=== PATIENT | female | born 1940 | race Caucasian/White ===

== ENCOUNTER → 2017-01-14 | Outpatient (CLI) | payer MEDICARE ==
[2017-01-14 14:57] LABS: Anion Gap 9 mmol/L; Blood Urea Nitrogen 16 mg/dL (7-17); Calcium 9.4 mg/dL (8.4-10.2); Carbon Dioxide 28 mmol/L (22-30); Chloride 102 mmol/L (98-107); Glucose 89 mg/dL (74-99); Non-African American GFR(MDRD) 54 (>60 ml/min/1.73 sqM); Potassium 4.5 mmol/L (3.5-5.1); Sodium 139 mmol/L (137-145)
== END | disposition home or self-care (01) ==
LOC: LABWHC1 14:13
PROVIDERS: ATTEND Family Medicine
DX: R41.82 Altered mental status, unspecified (principal)
CPT/HCPCS: 36415; 80048

== ENCOUNTER → 2017-02-01 | Outpatient (CLI) | payer MEDICARE ==
[2017-02-01 11:53] LABS: Blood Urea Nitrogen 19 mg/dL (7-17); Non-African American GFR(MDRD) 54 (>60 ml/min/1.73 sqM)
--- NOTE | 2017-02-01 13:05 | CT ---
EXAMINATION TYPE: CT brain w con DATE OF EXAM: 02/01/2017 COMPARISON: NONE HISTORY: Altered Mental Status, Lung nodules CT DLP: 1144.70 mGycm Automated exposure control for dose reduction was used. CONTRAST: CT scan of the head is performed with IV Contrast, patient injected with 80 mL of Visipaque 320. FINDINGS: There is no abnormal enhancing mass or midline shift identified. The ventricles and sulci are within normal limits in size for patient's age. The globes are intact and the visualized sinuses are clear . Persistent anterior metopic suture is incidentally noted. Patchy soft tissue density right external auditory canal is felt to reflect cerumen. IMPRESSION: No suspicious enhancing mass or midline shift is seen.
--- NOTE | 2017-02-01 13:10 | CT ---
EXAMINATION TYPE: CT chest wo con DATE OF EXAM: 02/01/2017 COMPARISON: CT chest March 19, 2016 and older exam August 05, 2015 HISTORY: Altered Mental Status, Lung nodules CT DLP: 155.60 mGycm. Automated Exposure Control for Dose Reduction was Utilized. TECHNIQUE: CT scan of the thorax is performed without IV contrast. FINDINGS: LUNGS: There is background mild emphysematous change. There is mild apical pleural and parenchymal fi brosis redemonstrated. There is persistent linear scarring medially in the left lung base. There is d ependent atelectasis in both lower lobes. There is additional linear scarring in both bases just abov e diaphragm redemonstrated. There is stable 3 mm nodule left lower lobe on axial image 39 posteriorly . There is stable 6 x 4 mm groundglass nodule right midlung anteriorly on axial image 33. There is st able 4 mm groundglass nodule right lower lobe posterior lateral region on axial image 38. No new susp icious greater than 6 mm nodule or mass is clearly seen bilaterally. No pleural effusion or pneumotho rax is present. Tracheobronchial tree is patent. MEDIASTINUM: Lack of IV contrast is noted to limit evaluation for mediastinal and especially hilar ad enopathy. There are no definitive greater than 1 cm hilar or mediastinal lymph nodes. No cardiomega ly or pericardial effusion is seen. OTHER: Mild to moderate multilevel spurring in thoracic spine is redemonstrated. Some disc space narr owing is redemonstrated in lower thoracic levels. IMPRESSION: Scattered stable small bilateral nodularity since July 2015. No new suspicious nodules o r adenopathy is identified.
== END | disposition home or self-care (01) ==
LOC: RADCTMAIN 11:10
PROVIDERS: ATTEND Family Medicine
DX: R91.8 Other nonspecific abnormal finding of lung field (principal); R41.82 Altered mental status, unspecified
CPT/HCPCS: 82565; 84520; 70460; 71250; Q9967

== ENCOUNTER → 2018-09-16 | Outpatient (CLI) | payer MEDICARE | END | disposition home or self-care (01) | LOC: LABWHC1 14:05 | PROVIDERS: ATTEND Family Medicine | DX: E87.5 Hyperkalemia (principal) | CPT/HCPCS: 36415; 84132 ==

== ENCOUNTER 2019-03-18 13:10 | Inpatient (IN) | payer MEDICARE ==
[2019-03-18] MEDS ORDERED: levETIRAcetam IV 1,000 MG in SALINE 1 100ML.BAG IVPB STA (15:01)
[2019-03-18] MEDS ORDERED: PROMETHAZINE 25 MG TAB PO PRN (15:01)
--- NOTE | 2019-03-18 15:07 | ED ---
General Adult HPI - General Chief complaint: Altered Mental Status Stated complaint: Altered Mental Status Time Seen by Provider: 03/18/19 13:20 Source: EMS Mode of arrival: EMS Limitations: altered mental status - History of Present Illness Initial comments: The patient is a 79-year-old female with past history of accelerated dementia who presents to the emergency room as a transfer from [facility]. History is provided by the patient's , son-in-law and daughter. It was originally stated at the other facility that the patient had 2 weeks of expressive aphasia. When discussing this with family, they state she has chronic dementia and will occasionally have issues with her speech. This is not what brought them into the hospital. They called EMS because she had what looked like new onset seizure activity home. Report her eyes rolled back in her head and she went completely unresponsive. She had full tonic-clonic shaking. She also had an episode of urinary and bowel incontinence. Episode lasted approximately 1 minute before the patient went limp. She then slowly became more alert. Patient's dementia waxes and wanes. States that it is not infrequent for the patient did not know who she is or where she is at. She will occasionally have urinary and stool incontinence as well. No history of seizures. No recent known blunt head trauma. Denies a cardiac history. Patient is on Xanax for anxiety. Deny any missed doses. No recent medication changes. No lateralizing symptoms. He denies any pain. The remainder of the HPI is limited because the patient's advanced dementia. - Related Data Home Medications Medication Instructions Recorded Confirmed Furosemide [Lasix] 20 mg PO DAILY 06/09/15 03/18/19 Lisinopril [Prinivil] 10 mg PO QAM 06/09/15 03/18/19 Memantine [Namenda] 10 mg PO BID 06/09/15 03/18/19 Pantoprazole Sodium 40 mg PO DAILY 06/09/15 03/18/19 Dicyclomine [Bentyl] 20 mg PO TID 10/29/15 03/18/19 Lisinopril [Zestril] 20 mg PO HS 03/18/19 03/18/19 OLANZapine [ZyPREXA] 5 mg PO HS 03/18/19 03/18/19 Promethazine [Phenergan] 25 mg PO Q6HR PRN 03/18/19 03/18/19 busPIRone HCL [Buspar] 7.5 mg PO BID 03/18/19 03/18/19 Previous Rx's Medication Instructions Recorded Budesonide [Entocort EC] 3 mg PO TID 10 Days #30 capdr...er 03/21/19 ALPRAZolam [Xanax] 0.25 mg PO HS #2 tab 03/23/19 ALPRAZolam [Xanax] 0.5 mg PO BID #4 tab 03/23/19 Folic Acid 1 mg PO DAILY@1200 tab 03/23/19 Multivitamins, Thera [Multivitamin 1 each PO DAILY@1200 tab 03/23/19 (formulary)] Sertraline [Zoloft] 25 mg PO DAILY tab 03/23/19 Sertraline [Zoloft] 50 mg PO DAILY tab 03/23/19 Thiamine [Vitamin B-1] 100 mg PO DAILY@1200 tab 03/23/19 levETIRAcetam [Keppra] 750 mg PO Q12HR tab 03/23/19 Allergies Allergy/AdvReac Type Severity Reaction Status Date / Time aspirin Allergy Unknown Verified 03/18/19 14:14 Review of Systems ROS Statement: Those systems with pertinent positive or pertinent negative responses have been documented in the HPI. ROS Other: All systems not noted in ROS Statement are negative. 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", lumps in breasts, History of Any Multi-Drug Resistant Organisms: None Reported Past Surgical History: Unable to Obtain Additional Past Surgical History / Comment(s): daughter not sure of surgical hx Past Anesthesia/Blood Transfusion Reactions: No Reported Reaction Past Psychological History: Anxiety, Depression Smoking Status: Never smoker Past Alcohol Use History: None Reported Past Drug Use History: None Reported - Past Family History Mother Family Medical History: Cancer Son(s) Family Medical History: Deep Vein Thrombosis (DVT), Pulmonary Embolus General Exam Limitations: altered mental status General appearance: anxious Head exam: Present: atraumatic, normocephalic Eye exam: Present: PERRL, EOMI ENT exam: Present: normal exam, normal oropharynx Neck exam: Present: normal inspection. Absent: tenderness, meningismus Respiratory exam: Present: normal lung sounds bilaterally. Absent: respiratory distress, wheezes, rales Cardiovascular Exam: Present: regular rate, normal rhythm GI/Abdominal exam: Present: soft. Absent: distended, tenderness, guarding, rebound, rigid Extremities exam: Present: pedal edema Back exam: Present: normal inspection Neurological exam: Present: alert. Absent: oriented X3 Psychiatric exam: Present: anxious Skin exam: Present: warm, dry, intact Course Vital Signs 03/18/19 03/18/19 03/18/19 13:19 15:11 15:32 Temperature 98.2 F Pulse Rate 92 76 Respiratory 18 16 Rate Blood Pressure 140/112 109/67 150/87 O2 Sat by Pulse 98 99 Oximetry Medical Decision Making - Medical Decision Making Upon arrival the patient is placed in room 3. I discussed the history with the patient's family. I reviewed the transfer packet which included an EKG, basic blood work and a UA. The patient did have a CT of her brain performed which demonstrates no acute findings. CT with images was uploaded in the computer [employer]. I discuss the diagnosis, differential and treatment options. I did dose the patient's home medications. I ordered a gram of Keppra. I discussed the case with Dr. Styles who accepted admission of the patient as long as family is aware that neurology is not condenser operator until Wednesday. We will be unable to obtain specialist opinion and if there is a neurologic emergency, the patient will be will need to be transferred to a separate facility. The family understood this. They are aware of the risks and benefits of transfer and wished to remain at [facility]. Bridging orders were placed. I did order an EEG. Patient is awaiting a bed on the floor - Lab Data Result diagrams: 03/22/19 08:55 03/22/19 08:55 Lab Results 03/18/19 03/18/19 03/20/19 Range/Units 16:37 16:37 06:04 WBC 8.6 8.0 (3.8-10.6) k/uL RBC 4.14 4.43 (3.80-5.40) m/uL Hgb 12.3 13.0 (11.4-16.0) gm/dL Hct 36.2 39.3 (34.0-46.0) % MCV 87.3 88.8 (80.0-100.0) fL MCH 29.6 29.3 (25.0-35.0) pg MCHC 33.9 33.0 (31.0-37.0) g/dL RDW 12.2 12.2 (11.5-15.5) % Plt Count 273 264 (150-450) k/uL Neutrophils % 73 % Lymphocytes % 18 % Monocytes % 5 % Eosinophils % 4 % Basophils % 0 % Neutrophils # 5.9 (1.3-7.7) k/uL Lymphocytes # 1.4 (1.0-4.8) k/uL Monocytes # 0.4 (0-1.0) k/uL Eosinophils # 0.3 (0-0.7) k/uL Basophils # 0.0 (0-0.2) k/uL Sodium 140 (137-145) mmol/L Potassium 3.5 (3.5-5.1) mmol/L Chloride 108 H (98-107) mmol/L Carbon Dioxide 25 (22-30) mmol/L Anion Gap 7 mmol/L BUN 9 (7-17) mg/dL Creatinine 0.77 (0.52-1.04) mg/dL Est GFR (CKD-EPI)AfAm 85 (>60 ml/min/1.73 sqM) Est GFR (CKD-EPI)NonAf 74 (>60 ml/min/1.73 sqM) Glucose 90 (74-99) mg/dL Calcium 8.9 (8.4-10.2) mg/dL Total Bilirubin 0.5 (0.2-1.3) mg/dL AST 28 (14-36) U/L ALT 28 (9-52) U/L Alkaline Phosphatase 56 (38-126) U/L Total Protein 6.2 L (6.3-8.2) g/dL Albumin 3.5 (3.5-5.0) g/dL 03/20/19 Range/Units 06:04 WBC (3.8-10.6) k/uL RBC (3.80-5.40) m/uL Hgb (11.4-16.0) gm/dL Hct (34.0-46.0) % MCV (80.0-100.0) fL MCH (25.0-35.0) pg MCHC (31.0-37.0) g/dL RDW (11.5-15.5) % Plt Count (150-450) k/uL Neutrophils % % Lymphocytes % % Monocytes % % Eosinophils % % Basophils % % Neutrophils # (1.3-7.7) k/uL Lymphocytes # (1.0-4.8) k/uL Monocytes # (0-1.0) k/uL Eosinophils # (0-0.7) k/uL Basophils # (0-0.2) k/uL Sodium 141 (137-145) mmol/L Potassium 3.1 L (3.5-5.1) mmol/L Chloride 106 (98-107) mmol/L Carbon Dioxide 27 (22-30) mmol/L Anion Gap 8 mmol/L BUN 10 (7-17) mg/dL Creatinine 0.79 (0.52-1.04) mg/dL Est GFR (CKD-EPI)AfAm 83 (>60 ml/min/1.73 sqM) Est GFR (CKD-EPI)NonAf 72 (>60 ml/min/1.73 sqM) Glucose 89 (74-99) mg/dL Calcium 9.0 (8.4-10.2) mg/dL Total Bilirubin (0.2-1.3) mg/dL AST (14-36) U/L ALT (9-52) U/L Alkaline Phosphatase (38-126) U/L Total Protein (6.3-8.2) g/dL Albumin (3.5-5.0) g/dL Disposition Clinical Impression: New onset seizure Disposition: ADMITTED IP TO THIS [facility] Condition: Fair Is patient prescribed a controlled substance at d/c from ED?: No Decision to Admit Reason: Admit from EC Decision Date: 03/18/19 Decision Time: 15:07
[2019-03-18 16:49] VITALS: BMI 28.6
[2019-03-18 16:52] LABS: HCT 36.2 % (34.0-46.0); HGB 12.3 gm/dL (11.4-16.0); MCH 29.6 pg (25.0-35.0); MCHC 33.9 g/dL (31.0-37.0); MCV 87.3 fL (80.0-100.0); Mean Platelet Volume 6.8; Platelet Count 273 k/uL (150-450); RBC 4.14 m/uL (3.80-5.40); RDW 12.2 % (11.5-15.5); WBC 8.6 k/uL (3.8-10.6)
[2019-03-18 17:23] LABS: Albumin 3.5 g/dL (3.5-5.0); Calcium 8.9 mg/dL (8.4-10.2); Total Bilirubin 0.5 mg/dL (0.2-1.3); Total Protein 6.2 g/dL (6.3-8.2)
[2019-03-18 17:31] LABS: Potassium 3.5 mmol/L (3.5-5.1)
[2019-03-18] MEDS: DICYCLOMINE 20 MG TAB PO SCH ×2 (17:43→20:55)
[2019-03-18] MEDS: ALPRAZolam 0.5 MG TAB PO SCH (17:43)
[2019-03-18] MEDS: ENOXAPARIN 40 MG/0.4 ML SYRINGE SQ SCH (17:43)
[2019-03-18] MEDS: OLANZapine 5 MG TAB PO SCH (20:55)
[2019-03-18] MEDS: ALPRAZolam 0.25 MG TAB PO SCH (20:55)
[2019-03-18] MEDS: busPIRone HCl 5 MG TAB PO SCH (20:55)
[2019-03-18] MEDS: LISINOPRIL 20 MG TAB PO SCH (20:55)
[2019-03-18] MEDS ORDERED: MEMANTINE 10 MG TAB PO SCH (21:00)
[2019-03-19] MEDS: PANTOPRAZOLE 40 MG TABLET PO SCH (06:37)
[2019-03-19] MEDS: busPIRone HCl 5 MG TAB PO SCH ×2 (08:19→20:00)
[2019-03-19] MEDS: LISINOPRIL 10 MG TAB PO SCH (08:19)
[2019-03-19] MEDS: ALPRAZolam 0.5 MG TAB PO SCH ×2 (08:19→15:53)
[2019-03-19] MEDS: SERTRALINE 100 MG TAB PO SCH (08:19)
[2019-03-19] MEDS: ENOXAPARIN 40 MG/0.4 ML SYRINGE SQ SCH (08:19)
[2019-03-19] MEDS: DICYCLOMINE 20 MG TAB PO SCH ×3 (08:19→20:00)
[2019-03-19] MEDS ORDERED: FUROSEMIDE 20 MG TAB PO SCH (09:00)
[2019-03-19] MEDS ORDERED: LORazepam 2 MG/ML INJ IV PRN (15:11)
[2019-03-19] MEDS ORDERED: levETIRAcetam IV 1,000 MG in SALINE 1 100ML.BAG IVPB STA (15:14)
--- NOTE | 2019-03-19 15:37 | PN ---
PROGRESS NOTE DATE OF SERVICE: 03/19/2019 CHIEF COMPLAINT: Change in mental status, possible seizure. HISTORY OF PRESENT ILLNESS: This 79-year-old woman with a past medical history of multiple medical problems including significant dementia, history of asthma, fibromyalgia, DJD, anxiety, depression, being followed by Dr. Paul Giles in the outpatient setting, is living in [facility]. Patient apparently taken to [facility] yesterday with complaints of expressive aphasia as well as seizure type of movements. The patient apparently had rolling of eyes and tonic-clonic jerks and the patient taken to [facility] as mentioned earlier and subsequently referred to [facility] and admitted for further evaluation and treatment. Currently the patient is basically nonverbal and most of the history is taken from my discussion with staff and review of chart and discussion with the daughters at the bedside. Apparently, the dementia waxes and wanes. PAST MEDICAL HISTORY: Reviewed. REVIEW OF SYSTEMS: Could not be taken as mentioned earlier. CURRENT MEDICATIONS: Reviewed and include: 1. Xanax 0.5 b.i.d. 2. Buspar 7.5 mg p.o. b.i.d. 3. Bentyl 20 mg p.o. daily. 4. Lovenox 40 mg subcu daily. 5. Zestril 20 mg q.h.s. and 10 mg q.a.m. 6. Zyprexa 5 mg q.h.s. 7. Protonix 40 mg daily. 8. Phenergan. 9. Zoloft. PHYSICAL EXAMINATION: Patient is conscious and confused. Pulse 81. Blood pressure 130/70, respiration 20, temperature 98 degrees, pulse ox 94% on room air. HEENT: Conjunctivae normal. Oral mucosa moist. Neck is no jugular venous distention. No carotid bruit. No lymph node enlargement. Cardiovascular system: S1, S2 muffled. No S3, no S4. RESPIRATORY: Breath sounds diminished in the bases. A few scattered rhonchi. No crackles. ABDOMEN: Soft, nontender. No mass palpable. LEGS no edema. No swelling. CENTRAL NERVOUS SYSTEM: No focal deficits. LABS: CBC within normal limits. Chloride is 108. ASSESSMENT: 1. Possible tonic-clonic seizures. 2. Change in mental status, possible metabolic encephalopathy. 3. Possible expressive aphasia/transient ischemic attack. 4. Dementia. 5. Asthma. 6. Fibromyalgia. 7. Hypertension. 8. History of degenerative joint disease. 9. History of diverticulosis. 10.History of aneurysm. 11.Breast lump. 12.Anxiety, depression. RECOMMENDATIONS AND DISCUSSION: In this 79-year-old woman who presented with multiple medical issues, at this time, I recommend to continue the current medications, management and symptomatic treatment. I would recommend neuro checks, neurology evaluation and further workup and resume the home medications. Keppra has been initiated. We will continue to monitor. Guarded prognosis because of multiple complex medical issues. Further recommendations to follow. A copy of this dictation being forwarded to Dr. Paul Giles who is the primary physician. See orders for further details. MMODL / IJN: [id number] /
--- NOTE | 2019-03-19 16:25 | P.HPIM ---
History of Present Illness H&P Date: 03/18/19 Chief Complaint: Seizure History of presenting complaint: This patient was seen by me in the ER yesterday on 03/18/2019 This is a 79-year-old patient of Dr. Rosemary Giles. History is obtained by the daughter lower at the bedside. Patient's son is also present. Chronic stable medical conditions include hyperlipidemia, osteoarthritis, advanced dementia. Patient to baseline uses a walker. Occasional he able to recognize family. Has reasonable control at her baseline normal bowels and urination. Patient can speak words. Is a poor historian. Patient was transferred here from [facility]. Patient had what looks like a new seizure activity at home. She denies a pack of the head and she became completely unresponsive. Patient is a full tonic-clonic shaking. She also had urinary and bowel incontinence. Episode lasted for about a minute. Post-episode she was lethargic. Tired. No prior history of seizure activity. No focal symptoms. Review of systems cannot be obtained with the patient because of being a poor historian. Relevant finding as above Past medical history to include: Hyperlipidemia osteoarthritis advanced dementia gait dysfunction uses a walker. At her baseline's speech can vary Social history: . Lives with her . No history of smoking or alcohol. Does use a walker. Physical examination: VITAL SIGNS: 98.2, 92, 18, 140/112, 98% room air GENERAL: [BMI 25.5, laying in bed anxious awake]. EYES: [Pupils equal. Conjunctiva bryce]l. HEENT: [External appearance of nose and ears normal, oral cavity grossly normal]. NECK: [JVD not raised; masses not palpable]. HEART: [First and second heart sounds are normal; no edema]. LUNGS:[ Respiratory rate normal; decreased breath sounds. ABDOMEN: [Soft, nontender, liver spleen not palpable, no masses palpable]. PSYCH: [Can also only occasional question]l. NEUROLOGICAL: [Cranial nerves grossly intact; no facial asymmetry, moving all 4 limbs LYMPHATICS: [No lymph nodes palpable in the axilla and neck] MUSCULOSKELETAL: Evidence of osteoarthritis especially in the hands INVESTIGATIONS, reviewed in the clinical context:: White count 8.6 hemoglobin 12.3 potassium 3.5 creatinine 0.77 Computed tomography scan from the other facility showed no acute findings. Assessment: -New onset of first episode of seizure in an elderly lady with advanced dementia. The first episode was typically not treated. No other risk factors except for dementia. No history of head injury. 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 This is a very elderly lady. That questions about MRI.The patient has no focal signs. And even if he were to find aneurysm, tumor, any chance of interventional be very limited. Patient will also need to be sedated for the test. 8. Be best to follow the patient clinically and treat the seizures is to come back. At this point they're already and understand the same. It was also informed of the bed now neurology is available. For the weekend. And the available not only on Wednesday. Home medications will be resumed. Did explain to the family at length that separate patient's confusion getting worse because of the new environment in the hospital.. EEG was ordered. Seizure precautions. 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", lumps in breasts, History of Any Multi-Drug Resistant Organisms: None Reported Past Surgical History: Unable to Obtain Additional Past Surgical History / Comment(s): daughter not sure of surgical hx, lumps removed from breast, partial hysterectomy Past Anesthesia/Blood Transfusion Reactions: No Reported Reaction Smoking Status: Never smoker - Past Family History Mother Family Medical History: Cancer Son(s) Family Medical History: Deep Vein Thrombosis (DVT), Pulmonary Embolus Medications and Allergies Home Medications Medication Instructions Recorded Confirmed Type Furosemide [Lasix] 20 mg PO DAILY 06/09/15 03/18/19 History Lisinopril [Prinivil] 10 mg PO QAM 06/09/15 03/18/19 History Memantine [Namenda] 10 mg PO BID 06/09/15 03/18/19 History Pantoprazole Sodium 40 mg PO DAILY 06/09/15 03/18/19 History ALPRAZolam [Xanax] 0.25 mg PO HS 10/29/15 03/18/19 History Dicyclomine [Bentyl] 20 mg PO TID 10/29/15 03/18/19 History Sertraline [Zoloft] 100 mg PO DAILY 10/29/15 03/18/19 History ALPRAZolam [Xanax] 0.5 mg PO BID 03/18/19 03/18/19 History Lisinopril [Zestril] 20 mg PO HS 03/18/19 03/18/19 History OLANZapine [ZyPREXA] 5 mg PO HS 03/18/19 03/18/19 History Promethazine [Phenergan] 25 mg PO Q6HR PRN 03/18/19 03/18/19 History busPIRone HCL [Buspar] 7.5 mg PO BID 03/18/19 03/18/19 History Allergies Allergy/AdvReac Type Severity Reaction Status Date / Time aspirin Allergy Unknown Verified 03/18/19 14:14 Physical Exam Vitals: Vital Signs Temp Pulse Pulse Resp BP BP Pulse Ox 03/19/19 08:00 97 F L 89 20 151/82 94 L 03/19/19 04:00 97.5 F L 76 18 128/72 96 03/18/19 23:04 75 18 122/67 95 03/18/19 20:00 97.9 F 72 18 113/65 94 L 03/18/19 16:39 97.6 F 75 20 145/85 96 03/18/19 15:32 150/87 03/18/19 15:11 76 16 109/67 99 03/18/19 13:19 98.2 F 92 18 140/112 98 Intake and Output 03/18/19 03/19/19 03/19/19 23:59 06:59 14:59 Intake Total 240 Balance 240 Intake: Oral 240 Other: # Voids 1 # Bowel Movements 1 Weight Results CBC & Chem 7: 03/18/19 16:37 03/18/19 16:37 Labs: Abnormal Lab Results - Last 24 Hours (Table) 03/18/19 Range/Units 16:37 Chloride 108 H (98-107) mmol/L Total Protein 6.2 L (6.3-8.2) g/dL Thrombosis Risk Factor Assmnt - Choose All That Apply Each Risk Factor Represents 3 Points: Age 75 years or older Thrombosis Risk Factor Assessment Total Risk Factor Score: 3 Thrombosis Risk Factor Assessment Level: Moderate Risk
--- NOTE | 2019-03-19 16:26 | US ---
EXAMINATION TYPE: US carotid duplex BILAT DATE OF EXAM: 03/19/2019 COMPARISON: NONE CLINICAL HISTORY: stroke. EXAM MEASUREMENTS: RIGHT: Peak Systolic Velocity (PSV) cm/sec ----- Right CCA: 98.7 ----- Right ICA: 96.6 ----- Right ECA: 106.4 ICA/CCA ratio: 1.0 RIGHT: End Diastole cm/sec ----- Right CCA: 19.8 ----- Right ICA: 23.0 ----- Right ECA: 12.8 LEFT: Peak Systolic Velocity (PSV) cm/sec ----- Left CCA: 89.2 ----- Left ICA: 67.2 ----- Left ECA: 78.8 ICA/CCA ratio: 0.8 LEFT: End Diastole cm/sec ----- Left CCA: 15.4 ----- Left ICA: 10.2 ----- Left ECA: 8.9 VERTEBRALS (direction of flow): Right Vertebral: Antegrade Left Vertebral: Antegrade Rhythm: Normal No significant stenosis seen. No Elevated velocities. Minimal plaque seen. IMPRESSION: There is antegrade flow in the vertebral arteries. The images and measurements suggest le ss than 25% stenosis in both internal carotid arteries. Criteria for Assigning % of Stenosis / Diameter reduction (Estimation based on the indirect measurements of the internal carotid artery velocities (ICA PSV). 1. Normal (no stenosis)=ICA PSV < 125 cm/s: ratio < 2.0: ICA EDV<40 cm/s. 2. Less than 50% stenosis=ICA PSV < 125 cm/s: ratio < 2.0: ICA EDV<40 cm/s. 3. 50 to 69% stenosis=ICA PSV of 125 to 230 cm/s: ration 2.0 ? 4.0: ICA EDV 40-100 cm/s. 4. Greater than 70% stenosis to near occlusion= ICA PSV > 230 cm/s: ratio > 4.0: ICA EDV > 100 cm/s. 5. Near occlusion= ICA PSV velocities may be low or undetectable: variable ratio and ICA EDV. 6. Total occlusion=unable to detect flow.
[2019-03-19] MEDS: LISINOPRIL 20 MG TAB PO SCH ×2 (19:59→20:00)
[2019-03-19] MEDS: ALPRAZolam 0.25 MG TAB PO SCH (19:59)
[2019-03-19] MEDS: OLANZapine 5 MG TAB PO SCH (20:00)
[2019-03-20] MEDS: LORazepam 2 MG/ML INJ IV PRN ×2 (01:44→10:11)
[2019-03-20] MEDS: PANTOPRAZOLE 40 MG TABLET PO SCH (06:27)
[2019-03-20 06:55] LABS: Basophils % (A) 0 %; Eosinophils # (A) 0.3 k/uL (0-0.7); Eosinophils % (A) 4 %; HCT 39.3 % (34.0-46.0); Lymphocytes # (A) 1.4 k/uL (1.0-4.8); Lymphocytes % (A) 18 %; MCH 29.3 pg (25.0-35.0); MCV 88.8 fL (80.0-100.0); Mean Platelet Volume 6.4; Monocytes # (A) 0.4 k/uL (0-1.0); Monocytes % (A) 5 %; Neutrophils # (A) 5.9 k/uL (1.3-7.7); Neutrophils % (A) 73 %; Platelet Count 264 k/uL (150-450); RBC 4.43 m/uL (3.80-5.40); RDW 12.2 % (11.5-15.5)
[2019-03-20 07:13] LABS: Potassium 3.1 mmol/L (3.5-5.1)
[2019-03-20] MEDS: LISINOPRIL 10 MG TAB PO SCH (09:58)
[2019-03-20] MEDS: ALPRAZolam 0.5 MG TAB PO SCH ×2 (09:58→16:26)
[2019-03-20] MEDS: busPIRone HCl 5 MG TAB PO SCH ×2 (09:58→19:34)
[2019-03-20] MEDS: FOLIC ACID 1 MG TAB PO SCH (09:58)
[2019-03-20] MEDS: THIAMINE 100 MG TAB PO SCH (09:58)
[2019-03-20] MEDS: SERTRALINE 100 MG TAB PO SCH (09:58)
[2019-03-20] MEDS: DICYCLOMINE 20 MG TAB PO SCH ×3 (09:58→19:34)
[2019-03-20] MEDS: MULTIVITAMINS, THERA 1 EACH TAB PO SCH (09:58)
[2019-03-20] MEDS: ENOXAPARIN 40 MG/0.4 ML SYRINGE SQ SCH (09:59)
[2019-03-20] MEDS: ALPRAZolam 0.25 MG TAB PO SCH (19:34)
[2019-03-20] MEDS: OLANZapine 5 MG TAB PO SCH (19:34)
--- NOTE | 2019-03-20 22:26 | P.CNNES ---
History of Present Illness Consult date: 03/20/19 Reason for Consult: Seizure Chief complaint: Eyes rolling back and became unresponsive with tonic-clonic shaking History of Present Illness: HISTORY OF PRESENT ILLNESS: Thank you for allowing me to evaluate Ms Caren Castano. Ms. Castano is a 79-year-old woman with past medical history of dementia, asthma, fibromyalgia, hypertension, osteoarthritis, diverticulosis, anxiety, depression, who presented to OSH with an episode of seizure-like activity. Daughter is at bedside to provide corroborating information. Patient is a poor historian. Daughter states that patient has been having symptoms of dementia for 10+ years. Patient lives with her but family takes of both them. Yesterday, patient had an episode where she became unresponsive, eyes rolled back, became stiff for a moment and had some shaking. Daughter endorses urinary and bowel incontinence. Daughter denies any similar episodes in the past, denies any recent sickness, fevers. Patient has been having some diarrhea but patient with history of diverticulosis. PAST MEDICAL HISTORY: dementia, asthma, fibromyalgia, hypertension, osteoarthritis, diverticulosis, anxiety, depression PAST SURGICAL HISTORY: Unknown surgical history HOME MEDICATIONS: Lasix, memantine, lisinopril, pantoprazole, dicyclomine, sertraline, olanzapine, lisinopril, Xanax ALLERGIES: Aspirin SOCIAL HISTORY: Never smoker FAMILY HISTORY: Mother had cancer. Son with DVT/pulmonary embolus REVIEW OF SYSTEMS: The 14 systems are reviewed and no additional points are identified compared to the review of systems documented history and physical PHYSICAL EXAMINATION: VITAL SIGNS: T 97.8 HR 75 RR 18 BP 128/70 O2 sat 96% on RA GEN.: grimacing, wanting to cry, at times smiling HEENT: NCAT, sclera without icterus NECK: Supple SKIN AND EXTREMITIES: Warm to touch, no edema NEURO: MENTAL STATUS: Patient able to state her name only. Tracks appropriately. CRANIAL NERVES II THROUGH XII: II: Pupils are equal and reactive to light symmetrically. Blinks to threat bilaterally. III, IV, : No ptosis. Extraocular movements full. VII. No clear facial asymmetry. MOTOR: Normal bulk/tone. Able to move b/l UE against gravity. Moves her legs spontaneously SENSORY: Grimaces to noxious stimuli in all 4 extremities COORDINATION/GAIT: Unable to assess DIAGNOSTIC TESTING: LABORATORY: WBC 8.0 hemoglobin 13.0 platelet 264 sodium 141 potassium 3.1 chloride 106 bicarb 27 BUN 10 creatinine 0.79 AST 28 ALT 28 alk phos 56 IMAGING: Carotid Doppler 03/19/2019: Antegrade flow in the vertebral arteries. Suggest less than 25% stenosis in both internal carotid arteries. CT head without contrast 03/18/2019 (available on synapse are not available on EMR): Preliminary read: No acute intracranial process. No lesion seen. ASSESSMENT: 79-year-old woman with past medical history of dementia, asthma, fibromyalgia, hypertension, osteoarthritis, diverticulosis, anxiety, depression, who presented to OSH with an episode of seizure-like activity. Description of episode highly suspicious for a seizure activity. Patient is elderly, this is the first seizure episode. Need to assess more in depth with an MRI brain to look for any possible lesions as the etiology of patient's episode as patient is elderly. RECOMMENDATIONS: 1. Will start Keppra 750mg BID 2. Routine EEG 3. MRI brain w/o contrast 4. 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", lumps in breasts, History of Any Multi-Drug Resistant Organisms: None Reported Past Surgical History: Unable to Obtain Additional Past Surgical History / Comment(s): daughter not sure of surgical hx, lumps removed from breast, partial hysterectomy Past Anesthesia/Blood Transfusion Reactions: No Reported Reaction Smoking Status: Never smoker - Past Family History Mother Family Medical History: Cancer Son(s) Family Medical History: Deep Vein Thrombosis (DVT), Pulmonary Embolus Medications and Allergies Home Medications Medication Instructions Recorded Confirmed Type Furosemide [Lasix] 20 mg PO DAILY 06/09/15 03/18/19 History Lisinopril [Prinivil] 10 mg PO QAM 06/09/15 03/18/19 History Memantine [Namenda] 10 mg PO BID 06/09/15 03/18/19 History Pantoprazole Sodium 40 mg PO DAILY 06/09/15 03/18/19 History ALPRAZolam [Xanax] 0.25 mg PO HS 10/29/15 03/18/19 History Dicyclomine [Bentyl] 20 mg PO TID 10/29/15 03/18/19 History Sertraline [Zoloft] 100 mg PO DAILY 10/29/15 03/18/19 History ALPRAZolam [Xanax] 0.5 mg PO BID 03/18/19 03/18/19 History Lisinopril [Zestril] 20 mg PO HS 03/18/19 03/18/19 History OLANZapine [ZyPREXA] 5 mg PO HS 03/18/19 03/18/19 History Promethazine [Phenergan] 25 mg PO Q6HR PRN 03/18/19 03/18/19 History busPIRone HCL [Buspar] 7.5 mg PO BID 03/18/19 03/18/19 History Allergies Allergy/AdvReac Type Severity Reaction Status Date / Time aspirin Allergy Unknown Verified 03/18/19 14:14 Physical Examination - Vital Signs Vital Signs: Vital Signs Temp Pulse Resp BP Pulse Ox 03/20/19 03:09 97.8 F 75 18 128/70 96 03/20/19 00:00 78 18 118/68 95 03/19/19 20:00 97.6 F 74 18 116/64 94 L 03/19/19 15:24 97.8 F 92 20 148/89 95 03/19/19 11:45 98 F 81 20 137/72 94 L Intake and Output 03/19/19 03/20/19 03/20/19 22:59 06:59 14:59 Intake Total 240 Balance 240 Intake: Oral 240 Other: # Voids 1 1 # Bowel Movements 2 Weight 69.5 kg Results - Laboratory Findings CBC and BMP: 03/20/19 06:04 03/20/19 06:04 Abnormal Lab Findings: Abnormal Labs 03/18/19 03/20/19 16:37 06:04 Potassium 3.1 L Chloride 108 H Total Protein 6.2 L
--- NOTE | 2019-03-20 22:51 | EEG ---
ELECTROENCEPHALOGRAM REPORT PROCEDURE DATE: 03/20/2019. ELECTROENCEPHALOGRAM (EEG) REPORT: TECHNIQUE: A routine 18 channel EEG was performed with video using the 10/20 international electrode placement system. HISTORY: Possible new onset seizure. Other medical history includes dementia, asthma, hypertension. CURRENT MEDICATIONS: Vitamin B1, Zoloft, Phenergan, Protonix, Zyprexa, Ativan. STUDY DURATION: 25 minutes. FINDINGS: BACKGROUND: The background activity consists of 7 to 8 hertz rhythmic waveforms symmetrically through both posterior quadrants. ACTIVATION: Hyperventilation: Not performed. Photic stimulation: Symmetric driving seen. Sleep: Stages I and II sleep noted. ABNORMALITIES: Intermittent diffuse 5-7 hertz polymorphic theta range slowing was seen. IMPRESSION: Abnormal EEG. The intermittent diffuse polymorphic theta range slowing mentioned above is not epileptiform in nature. In combination with the slow background, these findings indicate mild diffuse cerebral dysfunction that may be seen in a toxometabolic encephalopathy. No seizures were recorded. No epileptiform activity was present. MMODL / IJN: [id number] /
[2019-03-21] MEDS: PANTOPRAZOLE 40 MG TABLET PO SCH (06:15)
[2019-03-21 06:48] LABS: Basophils % (A) 0 %; Eosinophils # (A) 0.3 k/uL (0-0.7); Eosinophils % (A) 6 %; HCT 40.1 % (34.0-46.0); HGB 12.9 gm/dL (11.4-16.0); Hypochromasia Slight; Lymphocytes # (A) 1.2 k/uL (1.0-4.8); Lymphocytes % (A) 20 %; MCH 29.6 pg (25.0-35.0); MCHC 32.1 g/dL (31.0-37.0); MCV 92.2 fL (80.0-100.0); Mean Platelet Volume 6.4; Monocytes # (A) 0.4 k/uL (0-1.0); Monocytes % (A) 7 %; Neutrophils # (A) 3.9 k/uL (1.3-7.7); Neutrophils % (A) 66 %; Platelet Count 275 k/uL (150-450); RBC 4.35 m/uL (3.80-5.40); RDW 12.4 % (11.5-15.5); WBC 5.9 k/uL (3.8-10.6)
[2019-03-21 06:54] LABS: Calcium 8.7 mg/dL (8.4-10.2); Potassium 3.7 mmol/L (3.5-5.1)
[2019-03-21] MEDS: SERTRALINE 50 MG TAB PO SCH (08:25)
[2019-03-21] MEDS: MULTIVITAMINS, THERA 1 EACH TAB PO SCH (08:25)
[2019-03-21] MEDS: DICYCLOMINE 20 MG TAB PO SCH ×3 (08:25→22:34)
[2019-03-21] MEDS: THIAMINE 100 MG TAB PO SCH (08:25)
[2019-03-21] MEDS: LISINOPRIL 10 MG TAB PO SCH (08:25)
[2019-03-21] MEDS: SERTRALINE 25 MG TAB PO SCH (08:25)
[2019-03-21] MEDS: FOLIC ACID 1 MG TAB PO SCH (08:25)
[2019-03-21] MEDS: ALPRAZolam 0.5 MG TAB PO SCH ×2 (08:26→15:27)
[2019-03-21] MEDS: busPIRone HCl 5 MG TAB PO SCH ×2 (08:26→21:35)
[2019-03-21] MEDS: ENOXAPARIN 40 MG/0.4 ML SYRINGE SQ SCH (08:26)
--- NOTE | 2019-03-21 08:48 | P.PN ---
Subjective Progress Note Date: 03/20/19 Principal diagnosis: This is a 79-year-old female who was recently transferred here to [facility] from [facility] with expressive aphasia as well as seizure like activity and is being closely monitored. Neurology was consulted and is currently pending at this time. An EEG was ordered and is pending at this time as well. Will await report. Patient is lying in bed in mild acute distress and tearful and stating that she is having abdominal cramping and gas that is causing discomfort. Daughter at the bedside states that she gets diarrhea often and usually has to take some form of antibiotic for it to resolve. Daughter states that she called Dr. Giles's office to inquire about which antibiotic she has taken for this in the past. Nursing staff reports no seizure-like activity at this time. Unable to obtain review of systems as the patient is mumbling and tearful and words are noncomprehensive. Guarded prognosis. Review of Systems: Cannot be taken as mentioned earlier Active Medications Alprazolam (Xanax) 0.5 mg PO BID@0900,1600 THEO Alprazolam (Xanax) 0.25 mg PO HS THEO Buspirone HCl (Buspar) 7.5 mg PO BID THEO Dicyclomine HCl (Bentyl) 20 mg PO TID THEO Enoxaparin Sodium (Lovenox) 40 mg SQ DAILY THEO Folic Acid (Folic Acid) 1 mg PO DAILY@1200 [facility] Levetiracetam (Keppra) 750 mg PO Q12HR THEO Lisinopril (Zestril) 10 mg PO QAM THEO Lisinopril (Zestril) 20 mg PO HS THEO Lorazepam (Ativan) 1 mg IV Q4HR PRN Lorazepam (Ativan) 0.5 mg IV Q6HR PRN Multivitamins (Theragran) 1 each PO DAILY@1200 [facility] Olanzapine (Zyprexa) 5 mg PO HS THEO Pantoprazole Sodium (Protonix) 40 mg PO AC-BRKFST THEO Promethazine HCl (Phenergan) 25 mg PO Q6HR PRN Sertraline HCl (Zoloft) 50 mg PO DAILY THEO Sertraline HCl (Zoloft) 25 mg PO DAILY THEO Thiamine HCl (Vitamin B-1) 100 mg PO DAILY@1200 [facility] Objective - Vital Signs Vital signs: Vital Signs Temp 97.5 F L 03/20/19 08:00 Pulse 85 03/20/19 08:00 Resp 18 03/20/19 08:00 BP 147/77 03/20/19 08:00 Pulse Ox 96 03/20/19 08:00 Intake & Output 03/19/19 03/20/19 03/20/19 18:59 06:59 18:59 Intake Total 840 100 Balance 840 100 Weight 69.5 kg Intake: Oral 840 100 Other: Voiding Method Bedside Commode # Voids 1 1 # Bowel Movements 1 2 - Exam Gen: This is a 79-year-old female lying in bed in mild acute distress and she is tearful making gestures that she is having abdominal discomfort and gas. Vital signs are stable. Temp is 97.5F, pulse is 85, respirations are 18, blood pressure is 147/77, oxygen saturation is 96% on room air HEENT: Head is atraumatic, normocephalic. Pupils equal, round. Sclerae is anicteric. NECK: Supple. No JVD. No lymphadenopathy. No thyromegaly. LUNGS: Diminished breath sounds at the bases with a few scattered rhonci noted No intercostal retractions. HEART: S1, S2 are muffled ABDOMEN: Soft. Bowel sounds are present. No masses. Mild tenderness upon palpation in the lower abdomen EXTREMITIES: No pedal edema. No calf tenderness. NEUROLOGICAL: Patient is awake and confused. - Labs CBC & Chem 7: 03/21/19 05:55 03/21/19 05:55 Labs: Abnormal Lab Results - Last 24 Hours (Table) 03/20/19 Range/Units 06:04 Potassium 3.1 L (3.5-5.1) mmol/L Assessment and Plan Assessment: Possible tonic-clonic seizures Change in mental status, possible metabolic encephalopathy Possible expressive aphasia/TIA Dementia Asthma Fibromyalgia Hypertension History of degenerative joint disease History of diverticulosis History of aneurysm Breast lump Anxiety/depression Recommendations and discussion: Recommend to continue current medications, management, and symptomatic treatment. Neurology was consulted and is currently pending at this time and will await report. An EEG was ordered and is pending at this time as well. Will continue with neuro checks and monitor for any seizure like activity. Will continue to monitor closely. Due to multiple complex medical issues prognosis is guarded. Further recommendations to follow.
--- NOTE | 2019-03-21 10:53 | ECHOF ---
Referral Reason:Stroke MEASUREMENTS -------- HEIGHT: 162.6 cm WEIGHT: 69.4 kg BP: 128/78 RVIDd: 3.1 cm (< 3.3) IVSd: 1.5 cm (0.6 - 1.1) LVIDd: 3.7 cm (3.9 - 5.3) LVPWd: 1.4 cm (0.6 - 1.1) IVSs: 2.1 cm LVIDs: 2.0 cm LVPWs: 1.9 cm LAESV Index (A-L): 25.19 ml/m Ao Diam: 3.2 cm (2.0 - 3.7) AV Cusp: 1.9 cm (1.5 - 2.6) MV EXCURSION: 12.973 mm (> 18.000) MV EF SLOPE: 61 mm/s (70 - 150) EPSS: 0.5 cm MV E Bhupinder: 0.55 m/s MV DecT: 272 ms MV A Bhupinder: 0.77 m/s MV E/A Ratio: 0.72 RAP: 5.00 mmHg RVSP: 26.20 mmHg FINDINGS -------- Sinus rhythm. This was a technically adequate study. The left ventricular size is normal. There is moderate concentric left ventricular hypertrophy. O verall left ventricular systolic function is normal with, an EF between 55 - 60 %. The diastolic fi lling pattern is normal for the age of the patient 9.51. The right ventricle is normal in size. Normal LA size by volume 22+/-6 ml/m2. The right atrial size is normal. Mobile interatrial septum. The aortic valve is trileaflet and appears structurally normal. There is no evidence of aortic regu rgitation. There is no evidence of aortic stenosis. Mild mitral regurgitation is present. Mild tricuspid regurgitation present. There is no evidence of pulmonary hypertension. The right v entricular systolic pressure, as measured by Doppler, is 26.20mmHg. There is no pulmonic regurgitation present. The aortic root size is normal. Normal inferior vena cava with normal inspiratory collapse consistent with estimated right atrial pre ssure of 5 mmHg. There is no pericardial effusion. CONCLUSIONS -------- 1. Sinus rhythm. 2. This was a technically adequate study. 3. The left ventricular size is normal. 4. There is moderate concentric left ventricular hypertrophy. 5. Overall left ventricular systolic function is normal with, an EF between 55 - 60 %. 6. The diastolic filling pattern is normal for the age of the patient 9.51 7. The right ventricle is normal in size. 8. Normal LA size by volume 22+/-6 ml/m2. 9. The right atrial size is normal. 10. Mobile interatrial septum. 11. The aortic valve is trileaflet and appears structurally normal. 12. There is no evidence of aortic regurgitation. 13. There is no evidence of aortic stenosis. 14. Mild mitral regurgitation is present. 15. Mild tricuspid regurgitation present. 16. There is no evidence of pulmonary hypertension. 17. The right ventricular systolic pressure, as measured by Doppler, is 26.20mmHg. 18. There is no pulmonic regurgitation present. 19. The aortic root size is normal. 20. Normal inferior vena cava with normal inspiratory collapse consistent with estimated right atrial pressure of 5 mmHg. 21. There is no pericardial effusion. MAINTENANCE PERSON: Marion Gamble RDCS
[2019-03-21] MEDS ORDERED: ENTOCORT 3 MG PO SCH (16:00)
[2019-03-21] MEDS: ENTOCORT 3 MG PO SCH ×2 (18:14→22:34)
[2019-03-21] MEDS: LISINOPRIL 20 MG TAB PO SCH (21:34)
[2019-03-21] MEDS: OLANZapine 5 MG TAB PO SCH (21:34)
[2019-03-21] MEDS: ALPRAZolam 0.25 MG TAB PO SCH (21:35)
--- NOTE | 2019-03-21 22:07 | P.PN ---
Subjective Progress Note Date: 03/21/19 Principal diagnosis: This is a 79-year-old female who was recently transferred here to [facility] from [facility] with expressive aphasia as well as seizure like activity and is being closely monitored. Neurology was consulted and is currently pending at this time. An EEG was ordered and is pending at this time as well. Will await report. Patient is lying in bed in mild acute distress and tearful and stating that she is having abdominal cramping and gas that is causing discomfort. Daughter at the bedside states that she gets diarrhea often and usually has to take some form of antibiotic for it to resolve. Daughter states that she called Dr. Giles's office to inquire about which antibiotic she has taken for this in the past. Nursing staff reports no seizure-like activity at this time. Unable to obtain review of systems as the patient is mumbling and tearful and words are noncomprehensive. Guarded prognosis. 03/21/2019 Patient is up in the moya walking with a walker with physical therapy at this time and appears to be in no acute distress. Patient was later visited in her room sitting up in the chair after her walk with family at the bedside and was again tearful and per the daughter this is her baseline when she starts to feel anxious and xanax is ordered. Patient continues to have diarrhea and am awaiting paperwork from Dr. Giles's office on which medication she normally takes when these episodes of diarrhea occurs. Pricing Intern personally called and spoke to the staff at Dr. Manju Giles's office and was made aware that she takes Entocort EC 3mg capsules three times daily. This was ordered and will continue to monitor closely. Neurology is following and an MRI of the brain is scheduled for tomorrow. Will await report. EEG yesterday showed mild diffuse cerebral dysfunction that may be seen in a toxometabolic encephalopathy with no seizure activity noted. No reports of seizure per nursing staff. Will continue to monitor closely. Objective - Vital Signs Vital signs: Vital Signs Temp 98.2 F 03/21/19 19:45 Pulse 75 03/21/19 20:00 Resp 17 03/21/19 20:00 BP 159/82 03/21/19 19:45 Pulse Ox 99 03/21/19 19:45 Intake & Output 03/21/19 03/21/19 03/22/19 06:59 18:59 06:59 Intake Total 0 Balance 0 Weight 68 kg Intake: Oral 0 Other: Voiding Method Bedside Commode Bedside Commode Bedside Commode # Voids 1 1 1 # Bowel Movements 1 - Exam Gen: This is a 79-year-old female sitting up in the chair and she is tearful and anxious. Vital signs are stable. Temp is 97.8F, pulse is 76, respirations are 16, blood pressure is 156/72, oxygen saturation is 94% on room air HEENT: Head is atraumatic, normocephalic. Pupils equal, round. Sclerae is anicteric. NECK: Supple. No JVD. No lymphadenopathy. No thyromegaly. LUNGS: Diminished breath sounds at the bases with a few scattered rhonci noted No intercostal retractions. HEART: S1, S2 are muffled ABDOMEN: Soft. Bowel sounds are present. No masses. Mild tenderness upon palpation in the lower abdomen EXTREMITIES: No pedal edema. No calf tenderness. NEUROLOGICAL: Patient is awake and confused. - Labs CBC & Chem 7: 03/21/19 05:55 03/21/19 05:55 Labs: Abnormal Lab Results - Last 24 Hours (Table) 03/21/19 Range/Units 05:55 Chloride 110 H (98-107) mmol/L Carbon Dioxide 21 L (22-30) mmol/L Assessment and Plan Assessment: Possible tonic-clonic seizures Change in mental status, possible metabolic encephalopathy Possible expressive aphasia/TIA Diarrhea possibly due to gastritis Asthma Fibromyalgia Hypertension History of degenerative joint disease History of diverticulosis History of aneurysm Breast lump Anxiety/depression Recommendations and discussion: Recommend to continue current medications, management, and symptomatic treatment. Neurology is following. An EEG was done yesterday as mentioned above. Awaiting an MRI that is scheduled for tomorrow. Will await report. Will continue with neuro checks and monitor for any seizure like activity. Patient was started on Keppra and tolerating thus far. Will continue to monitor closely. Due to multiple complex medical issues prognosis is guarded. Family is working with case management and social work as they have decided to look for rehab or placement at [facility]. Further recommendations to follow.
[2019-03-21] MEDS: LORazepam 2 MG/ML INJ IV PRN (22:35)
[2019-03-22] MEDS: PANTOPRAZOLE 40 MG TABLET PO SCH (06:30)
[2019-03-22] MEDS: ENOXAPARIN 40 MG/0.4 ML SYRINGE SQ SCH (08:31)
[2019-03-22] MEDS: busPIRone HCl 5 MG TAB PO SCH (08:33)
[2019-03-22] MEDS: ENTOCORT 3 MG PO SCH ×2 (08:36→16:46)
[2019-03-22] MEDS: ALPRAZolam 0.5 MG TAB PO SCH ×2 (08:37→16:46)
[2019-03-22] MEDS: MULTIVITAMINS, THERA 1 EACH TAB PO SCH (08:37)
[2019-03-22] MEDS: SERTRALINE 50 MG TAB PO SCH (08:37)
[2019-03-22] MEDS: DICYCLOMINE 20 MG TAB PO SCH ×2 (08:37→16:46)
[2019-03-22] MEDS: THIAMINE 100 MG TAB PO SCH (08:37)
[2019-03-22] MEDS: LISINOPRIL 10 MG TAB PO SCH (08:37)
[2019-03-22] MEDS: SERTRALINE 25 MG TAB PO SCH (08:37)
[2019-03-22] MEDS: FOLIC ACID 1 MG TAB PO SCH (08:37)
[2019-03-22 09:28] LABS: Basophils % (A) 0 %; Eosinophils # (A) 0.2 k/uL (0-0.7); Eosinophils % (A) 3 %; HCT 41.3 % (34.0-46.0); HGB 13.8 gm/dL (11.4-16.0); Lymphocytes # (A) 1.2 k/uL (1.0-4.8); Lymphocytes % (A) 16 %; MCH 29.6 pg (25.0-35.0); MCHC 33.3 g/dL (31.0-37.0); MCV 88.9 fL (80.0-100.0); Mean Platelet Volume 6.5; Monocytes # (A) 0.4 k/uL (0-1.0); Monocytes % (A) 5 %; Neutrophils # (A) 5.9 k/uL (1.3-7.7); Neutrophils % (A) 75 %; Platelet Count 253 k/uL (150-450); RBC 4.65 m/uL (3.80-5.40); RDW 12.3 % (11.5-15.5); WBC 7.9 k/uL (3.8-10.6)
[2019-03-22 10:18] LABS: Calcium 9.2 mg/dL (8.4-10.2); Potassium 3.6 mmol/L (3.5-5.1)
[2019-03-22] MEDS ORDERED: HALOPERIDOL LACTATE 5 MG/ML 1 ML VIAL IM PRN (12:15)
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
[2019-03-23] MEDS: busPIRone HCl 5 MG TAB PO SCH ×2 (00:54→07:28)
[2019-03-23] MEDS: ALPRAZolam 0.25 MG TAB PO SCH ×2 (00:54→01:38)
[2019-03-23] MEDS: DICYCLOMINE 20 MG TAB PO SCH ×2 (00:54→07:28)
[2019-03-23] MEDS: OLANZapine 5 MG TAB PO SCH (00:54)
[2019-03-23] MEDS: LISINOPRIL 20 MG TAB PO SCH (00:55)
[2019-03-23] MEDS: ENTOCORT 3 MG PO SCH ×2 (01:01→07:29)
[2019-03-23] MEDS: SERTRALINE 50 MG TAB PO SCH (07:28)
[2019-03-23] MEDS: MULTIVITAMINS, THERA 1 EACH TAB PO SCH (07:28)
[2019-03-23] MEDS: FOLIC ACID 1 MG TAB PO SCH (07:28)
[2019-03-23] MEDS: SERTRALINE 25 MG TAB PO SCH (07:28)
[2019-03-23] MEDS: THIAMINE 100 MG TAB PO SCH (07:28)
[2019-03-23] MEDS: ALPRAZolam 0.5 MG TAB PO SCH ×2 (07:28→14:19)
[2019-03-23] MEDS: PANTOPRAZOLE 40 MG TABLET PO SCH (07:28)
[2019-03-23] MEDS: LISINOPRIL 10 MG TAB PO SCH (07:29)
[2019-03-23] MEDS: ENOXAPARIN 40 MG/0.4 ML SYRINGE SQ SCH (07:29)
--- NOTE | 2019-03-23 11:11 | MR ---
EXAMINATION TYPE: MR brain wo con DATE OF EXAM: 03/23/2019 COMPARISON: CT head [address] February 01, 2017 HISTORY: New onset seizure in an elderly patient TECHNIQUE: Multiplanar, multisequence imaging of the brain and brainstem is performed without IV cont rast. FINDINGS: Diffusion weighted images demonstrate no evidence of a recent infarct or other diffusion abnormality. There is no worrisome extra-axial fluid collection. Diffuse ventricular and sulcal prominence is pres ent most prominent over bilateral frontal lobes is redemonstrated.. Scattered foci of T2 hyperintensi ty is seen throughout the superficial deep and periventricular white matter. Midline structures demonstrate normal morphology. The craniocervical junction appears within normal limits. Normal vascular flow voids are present. Dominant left vertebral artery incidentally noted. Di stortion at level of nose anteriorly is seen. Some distortion extends to level of bilateral globes. S inuses are felt clear. IMPRESSION: Fairly moderate generalized cerebral atrophy felt most prominent over bilateral frontal a nd temporal lobes and moderate to severe chronic small vessel ischemic change.
--- NOTE | 2019-03-23 12:02 | P.DS ---
Providers Date of admission: 03/20/19 09:42 Expected date of discharge: 03/23/19 Attending physician: Keaton Madden MD Consults: 03/19/19 11:56 Consult Physician Routine Consulting Provider: Janine Liz Consult Reason/Comments: NOS SEIZURE Do you want consulting provider notified?: Yes Primary care physician: [facility] Course: Possible tonic-clonic seizures Change in mental status, possible metabolic encephalopathy Possible expressive aphasia/TIA Dementia Diarrhea possibly due to gastritis Asthma Fibromyalgia Hypertension History of degenerative joint disease History of diverticulosis History of aneurysm Breast lump Anxiety/depression Discharge disposition Patient is being discharged in a stable condition with guarded prognosis to [facility] for continued PT/OT therapy. Patient will follow up with neurology in the outpatient setting in 1-2 weeks time. Total time taken is 35 minutes. History of present illness This is a 79-year-old female with a past medical history of multiple medical problems including significant dementia, history of asthma, fibromyalgia, DJD, anxiety, and depression and was recently admitted from a transfer from [facility] to [facility] here with complaints of expressive aphasia as well as seizure types of movements that were noticed at home. Per family there was some tonic-clonic jerks and rolling of the eyes prior to the ER at [place]. Patient was transferred down here for neurology consult. Neurology was following closely. During hospitalization patient underwent an EEG showing mild diffuse cerebral dysfunction that may be seen in a toxo metabolic encephalopathy with no seizure activity recorded. Patient also underwent an MRI today of the brain showing moderate generalized cerebral atrophy and moderate to severe chronic small vessel ischemic change with no evidence of recent infarct or other diffusion abnormality. Patient underwent a carotid Doppler during hospitalization showing less than 25% stenosis in both internal carotid arteries. Currently patient denies any chest pain, shortness of breath, or palpitations. Patient continues to be tearful and does have a history of anxiety and per daughter this is her baseline. During hospitalization there has been no seizure-like activity and was being closely monitored. Patient will follow up with neurology in the outpatient setting in 1-2 weeks time. She was started on Keppra and will continue at this time until follow-up with neurologist. Currently patient's condition is stable and is ready for discharge today to an [facility] for continued PT/OT therapy for strengthening mobility. Guarded prognosis. On exam vital signs are stable. Temp is 97.4F, pulse is 90, respirations are 16, blood pressure is 143/81, oxygen saturation is 93% on room air. Cardio S1 and S2 are muffled. Respiratory system shows diminished breath sounds at the bases with no wheezing or crackles noted. Abdomen is soft and nontender. Ne rvous system shows no focal deficits with mild diffuse weakness. Please refer to medication reconciliation sheet for a list of medications. Patient Condition at Discharge: Fair Plan - Discharge Summary New Discharge Prescriptions: New Budesonide [Entocort EC] 3 mg PO TID 10 Days #30 capdr...er Folic Acid 1 mg PO DAILY@1200 tab levETIRAcetam [Keppra] 750 mg PO Q12HR tab Multivitamins, Thera [Multivitamin (formulary)] 1 each PO DAILY@1200 tab Thiamine [Vitamin B-1] 100 mg PO DAILY@1200 tab Sertraline [Zoloft] 25 mg PO DAILY tab Sertraline [Zoloft] 50 mg PO DAILY tab Continue Furosemide [Lasix] 20 mg PO DAILY Memantine [Namenda] 10 mg PO BID Lisinopril [Prinivil] 10 mg PO QAM Pantoprazole Sodium 40 mg PO DAILY Dicyclomine [Bentyl] 20 mg PO TID Promethazine [Phenergan] 25 mg PO Q6HR PRN PRN Reason: Allergy Symptoms busPIRone HCL [Buspar] 7.5 mg PO BID OLANZapine [ZyPREXA] 5 mg PO HS Lisinopril [Zestril] 20 mg PO HS ALPRAZolam [Xanax] 0.25 mg PO HS #2 tab ALPRAZolam [Xanax] 0.5 mg PO BID #4 tab Discontinued Sertraline [Zoloft] 100 mg PO DAILY Discharge Medication List Furosemide [Lasix] 20 mg PO DAILY 06/09/15 [History] Lisinopril [Prinivil] 10 mg PO QAM 06/09/15 [History] Memantine [Namenda] 10 mg PO BID 06/09/15 [History] Pantoprazole Sodium 40 mg PO DAILY 06/09/15 [History] Dicyclomine [Bentyl] 20 mg PO TID 10/29/15 [History] Lisinopril [Zestril] 20 mg PO HS 03/18/19 [History] OLANZapine [ZyPREXA] 5 mg PO HS 03/18/19 [History] Promethazine [Phenergan] 25 mg PO Q6HR PRN 03/18/19 [History] busPIRone HCL [Buspar] 7.5 mg PO BID 03/18/19 [History] Budesonide [Entocort EC] 3 mg PO TID 10 Days #30 capdr...er 03/21/19 [Rx] ALPRAZolam [Xanax] 0.25 mg PO HS #2 tab 03/23/19 [Rx] ALPRAZolam [Xanax] 0.5 mg PO BID #4 tab 03/23/19 [Rx] Folic Acid 1 mg PO DAILY@1200 tab 03/23/19 [Rx] Multivitamins, Thera [Multivitamin (formulary)] 1 each PO DAILY@1200 tab 03/23/19 [Rx] Sertraline [Zoloft] 25 mg PO DAILY tab 03/23/19 [Rx] Sertraline [Zoloft] 50 mg PO DAILY tab 03/23/19 [Rx] Thiamine [Vitamin B-1] 100 mg PO DAILY@1200 tab 03/23/19 [Rx] levETIRAcetam [Keppra] 750 mg PO Q12HR tab 03/23/19 [Rx] Follow up Appointment(s)/Referral(s): Paul Giles DO [Primary Care Provider] - 1-2 days Laila Awan MD [Medical Doctor] - 1 Week Activity/Diet/Wound Care/Special Instructions: [facility] Activity as tolerated Continue current diet Follow-up with neurology in the outpatient setting in 1-2 weeks Follow up with primary care provider upon discharge Discharge Disposition: TRANSFER TO SNF/ECF
[2019-03-23 12:53] VITALS: BP 147/65; PULSE 80; RESP 18; TEMP 98.3
== END 2019-03-23 15:07 | DRG 101 ==
LOC: EC 13:10 → 3SCARD 15:00 → OBSVTOIN 03-20 09:42 → 4MS4W 03-22 10:40
PROVIDERS: ADMIT Internal Medicine; ATTEND Internal Medicine
DX: R56.9 Unspecified convulsions (principal); G45.9 Transient cerebral ischemic attack, unspecified; F17.200 Nicotine dependence, unspecified, uncomplicated; F41.9 Anxiety disorder, unspecified; G30.1 Alzheimer's disease with late onset; I10 Essential (primary) hypertension; J45.909 Unspecified asthma, uncomplicated; M19.91 Primary osteoarthritis, unspecified site; E78.5 Hyperlipidemia, unspecified; F02.80 Dementia in other diseases classified elsewhere, unspecified severity, without behavioral disturbance, psychotic disturbance, mood disturbance, and anxiety; M79.7 Fibromyalgia; Z79.899 Other long term (current) drug therapy; Z80.9 Family history of malignant neoplasm, unspecified; Z86.79 Personal history of other diseases of the circulatory system; K29.70 Gastritis, unspecified, without bleeding; Z88.6 Allergy status to analgesic agent
CPT/HCPCS: 70551; 80048; 80053; 85025; 85027; 93306; 93880; 95819; 96374; 99285